=== PATIENT | male | born 1990 | race African-American/Black ===

== ENCOUNTER 2017-12-12 10:10 | Outpatient (CLI) | payer OTHER | END 2017-12-12 10:11 | disposition home or self-care (01) | LOC: BICMRI 10:10 | PROVIDERS: ATTEND Specialist | DX: M25.561 Pain in right knee (principal); S83.281A Other tear of lateral meniscus, current injury, right knee, initial encounter; S83.511A Sprain of anterior cruciate ligament of right knee, initial encounter; M25.461 Effusion, right knee ==